=== PATIENT | female | born 1985 | race American Indian/Alaskan Native ===

== ENCOUNTER 2017-05-28 23:08 | Emergency (ER) | payer OTHER ==
[2017-05-29 00:36] LABS: Basophils % (Auto) 0.2 % (0.0-1.8); Eosinophils % (Auto) 1.4 % (0.0-4.3); Hemoglobin 12.6 gm/dl (10.1-14.3); Mean Corpuscular HGB Conc 32 % (30-34); Mean Corpuscular Hemoglobin 26 pg (28-32); Mean Corpuscular Volume 81 fl (79-97); Platelet Count 251 K/mm3 (140-440); Red Blood Count 4.84 M/mm3 (3.65-5.03); Red Cell Distribution Width 15.6 % (13.2-15.2); White Blood Count 7.4 K/mm3 (4.5-11.0)
[2017-05-29 00:42] LABS: Anion Gap 16 mmol/L; Blood Urea Nitrogen 9 mg/dL (7-17); Calcium 9.1 mg/dL (8.4-10.2); Carbon Dioxide 26 mmol/L (22-30); Glucose 101 mg/dL (65-100); Potassium 3.7 mmol/L (3.6-5.0); Sodium 135 mmol/L (137-145)
[2017-05-29 01:36] LABS: Bacteria,Urine 3+ /HPF (Negative); Bilirubin,Urine NEG (Negative); Blood,Urine MOD (Negative); Ketones,Urine NEG (Negative); Leukocyte Esterase,Urine LG (Negative); Mucus,Urine 2+ /HPF; Nitrite,Urine NEG (Negative)
[2017-05-29 01:38] LABS: WBC,Urine > 182.0 /HPF (0.0-6.0)
[2017-05-29] MEDS ORDERED: NACL 0.9% 1000 ML 1,000 ML IV ONE (10:35)
[2017-05-29] MEDS ORDERED: TYLENOL PO ONE (10:35)
[2017-05-29] MEDS ORDERED: ROCEPHIN/NS 1 GM/50 ML 1 GM/50 ML BAG IV ONE (10:35)
[2017-05-29] MEDS ORDERED: ZOFRAN IV ONE (10:35)
--- NOTE | 2017-05-29 11:55 | Ultrasound Report ---
ULTRASOUND OB LESS THAN 14 WEEKS FETUS ULTRASOUND OB TRANSVAGINAL HISTORY: Abdominal pain during , vomiting. TECHNIQUE: Transabdominal and transvaginal ultrasound with color and spectral doppler interrogation. The uterus measures 11.4 x 5.5 x 7.3 cm. No uterine mass is appreciated. An intrauterine is identified with heart rate measuring 168 beats per minute. [place]-rump length measures 31.4 mm which correlates with a 10 week, 0 day . Estimated due date December 25, 2017. A small subchorionic hemorrhage is identified. The ovaries are visualized. A 1.6 cm cyst is noted in the right ovary. A 3.1 cm cyst is noted in the left ovary. No pelvic fluid collection. IMPRESSION: Viable, single intrauterine as described. Small subchorionic hemorrhage. Bilateral ovarian cysts.
--- NOTE | 2017-05-29 12:31 | Emergency Department Report ---
ED N/V/D HPI - General Chief complaint: Back Pain/Injury Stated complaint: BACK PAIN/HEADACHE Time Seen by Provider: 05/29/17 10:28 Source: patient Mode of arrival: Ambulatory Limitations: No Limitations - History of Present Illness Initial comments: 31-year-old female with no sciatica past medical history presents to the hospital complaining of lower back pain, headache, and nausea vomiting. Symptoms 2 days. Lower back pain described as sharp, aching, worse and movement and palpation. Pain rated 8/10 in intensity. Patient having intermittent nausea vomiting with decreased by mouth intake for the past 2 days. She complains of a posterior headache that started gradually and has been constant. She hasn't taken any medications for pain. LMP was 7 weeks and 6 days ago. Patient denies dysuria but complains of vaginal discharge without vaginal bleeding or abdominal pain. - Related Data Previous Rx's Medication Instructions Recorded Last Taken Type Acetaminophen/Codeine [Tylenol #3] 1 tab PO Q6H PRN #5 tab 11/04/15 Unknown Rx Tobramycin 0.3% [Tobrex] 2 drop OD Q4HR #1 bottle 11/04/15 Unknown Rx Nitrofurantoin Alfalfa/M-Cryst 100 mg PO Q12HR #14 capsule 05/29/17 Unknown Rx [Macrobid CAP] Ondansetron [Zofran Odt] 4 mg PO Q8HR PRN #20 tab.rapdis 05/29/17 Unknown Rx Vit W-Ca,Fe,FA(<1 mg) 1 each PO DAILY #30 tablet 05/29/17 Unknown Rx [ Vitamins] metroNIDAZOLE [Flagyl] 500 mg PO Q12HR #14 tab 05/29/17 Unknown Rx Allergies Allergy/AdvReac Type Severity Reaction Status Date / Time No Known Allergies Allergy Verified 06/18/15 08:11 ED Review of Systems ROS: Stated complaint: BACK PAIN/HEADACHE Other details as noted in HPI Comment: All other systems reviewed and negative Other: Constitutional: No fevers chills or weight loss Eyes: No eye pain visual changes or discharge ENT: No ear pain or throat pain Neck: Denies pain Respiratory: Denies cough wheezing shortness of breath at rest shortness of breath or exertion, orthopnea or PND Cardiovascular: Denies chest pain, palpitations, syncope Endocrine: Denies excessive sweating, intolerance to cold, increased thirst GI: Denies abdominal pain, hematochezia : Denies dysuria Musculoskeletal: Positive back pain Skin: Denies rash, lesions, erythema Neurologic: Denies numbness, weakness Psychiatric: Denies suicidal ideation, hallucinations Hematological/lymphatic: Denies easy bruising, lymphadenopathy ED Past Medical Hx - Past Medical History Previous Medical History?: No - Surgical History Past Surgical History?: No - Social History Smoking Status: Never Smoker Substance Use Type: None - Medications Home Medications: Home Medications Medication Instructions Recorded Confirmed Last Taken Type Acetaminophen/Codeine [Tylenol #3] 1 tab PO Q6H PRN #5 tab 11/04/15 Unknown Rx Tobramycin 0.3% [Tobrex] 2 drop OD Q4HR #1 bottle 11/04/15 Unknown Rx Nitrofurantoin Alfalfa/M-Cryst 100 mg PO Q12HR #14 capsule 05/29/17 Unknown Rx [Macrobid CAP] Ondansetron [Zofran Odt] 4 mg PO Q8HR PRN #20 tab.rapdis 05/29/17 Unknown Rx Vit W-Ca,Fe,FA(<1 mg) 1 each PO DAILY #30 tablet 05/29/17 Unknown Rx [ Vitamins] metroNIDAZOLE [Flagyl] 500 mg PO Q12HR #14 tab 05/29/17 Unknown Rx ED Physical Exam - General Limitations: No Limitations - Other Other exam information: General: No limitations, patient is alert in no acute distress Head exam: Atraumatic, normocephalic Eyes exam: Normal appearance ENT: Moist mucous membrane, normal oropharynx Neck exam: Normal inspection, full range of motion, no meningismus nontender Respiratory exam: Clear to auscultation bilateral, no wheezes, rales, crackles Cardiovascular: Normal rate and rhythm, normal heart sounds Abdomen: Soft, nondistended, and nontender, with normal bowel sounds, no rebound, or guarding : External vagina normal without lesions, thick white discharge in vaginal vault, no cervical lesions, no CMT Extremity: Full range of motion normal inspection no deformity Back: Normal Inspection, generalized lower lumbar tenderness Neurologic: Alert, oriented x3, cranial nerves intact, no motor or sensory deficit Psychiatric: normal affect, normal mood Skin: Warm, dry, intact ED Course Vital Signs 05/28/17 05/29/17 05/29/17 23:56 10:05 12:20 Temperature 98.4 F 98.5 F Pulse Rate 80 63 Respiratory 18 20 20 Rate Blood Pressure 137/84 Blood Pressure 173/71 [Left] O2 Sat by Pulse 97 99 Oximetry 05/29/17 13:20 Temperature 98.5 F Pulse Rate 58 L Respiratory 20 Rate Blood Pressure Blood Pressure 116/68 [Left] O2 Sat by Pulse 100 Oximetry - Reevaluation(s) Reevaluation #1: 05/29/17 13:38 pt received 1 L normal saline, Rocephin IV, Zofran IV, and Tylenol by mouth. She reports reduction in her headache. Patient states she still has lower back pain. 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 She states that Flagyl by mouth 500 twice a day 7 days is indicated for treatment of Trichomonas/BV during ED Medical Decision Making - Lab Data Result diagrams: 05/29/17 00:12 05/29/17 00:12 Lab Results 05/29/17 05/29/17 05/29/17 Range/Units 00:12 00:12 00:12 WBC 7.4 (4.5-11.0) K/mm3 RBC 4.84 (3.65-5.03) M/mm3 Hgb 12.6 (10.1-14.3) gm/dl Hct 39.0 (30.3-42.9) % MCV 81 (79-97) fl MCH 26 L (28-32) pg MCHC 32 (30-34) % RDW 15.6 H (13.2-15.2) % Plt Count 251 (140-440) K/mm3 Lymph % (Auto) 40.6 H (13.4-35.0) % Alfalfa % (Auto) 8.2 H (0.0-7.3) % Eos % (Auto) 1.4 (0.0-4.3) % Baso % (Auto) 0.2 (0.0-1.8) % Lymph # 3.0 (1.2-5.4) K/mm3 Alfalfa # 0.6 (0.0-0.8) K/mm3 Eos # 0.1 (0.0-0.4) K/mm3 Baso # 0.0 (0.0-0.1) K/mm3 Seg Neutrophils % 49.6 (40.0-70.0) % Seg Neutrophils # 3.7 (1.8-7.7) K/mm3 Sodium 135 L (137-145) mmol/L Potassium 3.7 (3.6-5.0) mmol/L Chloride 97.0 L (98-107) mmol/L Carbon Dioxide 26 (22-30) mmol/L Anion Gap 16 mmol/L BUN 9 (7-17) mg/dL Creatinine 0.4 L (0.7-1.2) mg/dL Estimated GFR > 60 ml/min BUN/Creatinine Ratio 22.50 % Glucose 101 H (65-100) mg/dL Calcium 9.1 (8.4-10.2) mg/dL HCG, Qual Positive (Negative) HCG, Quant (0-4) mIU/mL Urine Color (Yellow) Urine Turbidity (Clear) Urine pH (5.0-7.0) Ur Specific [place] (1.003-1.030) Urine Protein (Negative) mg/dL Urine Glucose (UA) (Negative) mg/dL Urine Ketones (Negative) mg/dL Urine Blood (Negative) Urine Nitrite (Negative) Urine Bilirubin (Negative) Urine Urobilinogen (<2.0) mg/dL Ur Leukocyte Esterase (Negative) Urine WBC (Auto) (0.0-6.0) /HPF Urine RBC (Auto) (0.0-6.0) /HPF U Epithel Cells (Auto) (0-13.0) /HPF Urine Bacteria (Auto) (Negative) /HPF Urine Mucus /HPF Blood Type 05/29/17 05/29/17 05/29/17 Range/Units 01:00 01:00 12:39 WBC (4.5-11.0) K/mm3 RBC (3.65-5.03) M/mm3 Hgb (10.1-14.3) gm/dl Hct (30.3-42.9) % MCV (79-97) fl MCH (28-32) pg MCHC (30-34) % RDW (13.2-15.2) % Plt Count (140-440) K/mm3 Lymph % (Auto) (13.4-35.0) % Alfalfa % (Auto) (0.0-7.3) % Eos % (Auto) (0.0-4.3) % Baso % (Auto) (0.0-1.8) % Lymph # (1.2-5.4) K/mm3 Alfalfa # (0.0-0.8) K/mm3 Eos # (0.0-0.4) K/mm3 Baso # (0.0-0.1) K/mm3 Seg Neutrophils % (40.0-70.0) % Seg Neutrophils # (1.8-7.7) K/mm3 Sodium (137-145) mmol/L Potassium (3.6-5.0) mmol/L Chloride (98-107) mmol/L Carbon Dioxide (22-30) mmol/L Anion Gap mmol/L BUN (7-17) mg/dL Creatinine (0.7-1.2) mg/dL Estimated GFR ml/min BUN/Creatinine Ratio % Glucose (65-100) mg/dL Calcium (8.4-10.2) mg/dL HCG, Qual (Negative) HCG, Quant [id number] H (0-4) mIU/mL Urine Color Yellow (Yellow) Urine Turbidity Cloudy (Clear) Urine pH 6.0 (5.0-7.0) Ur Specific [place] 1.020 (1.003-1.030) Urine Protein 30 mg/dl (Negative) mg/dL Urine Glucose (UA) Neg (Negative) mg/dL Urine Ketones Neg (Negative) mg/dL Urine Blood Mod (Negative) Urine Nitrite Neg (Negative) Urine Bilirubin Neg (Negative) Urine Urobilinogen 4.0 (<2.0) mg/dL Ur Leukocyte Esterase Lg (Negative) Urine WBC (Auto) > 182.0 H (0.0-6.0) /HPF Urine RBC (Auto) 109.0 (0.0-6.0) /HPF U Epithel Cells (Auto) 54.0 H (0-13.0) /HPF Urine Bacteria (Auto) 3+ (Negative) /HPF Urine Mucus 2+ /HPF Blood Type B POSITIVE - Radiology Data Radiology results: report reviewed Transvaginal/pelvic ultrasound 10 week IUP heart 168 small subchorionic hemorrhage no pelvic fluid collection - Medical Decision Making Plan to discharge patient home. I suspected nausea or vomiting related to . Patient has a mild headache at this time she states is gradual without any no rigidity, blurred vision, or neurologic deficit and has improved. Patient was treated for bacterial vaginosis and Trichomonas in educated about the importance of her partner being treated as well. 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 Outpatient follow-up will be encouraged. - Differential Diagnosis UTI, , migraine headache, cluster headache, dehydration Critical Care Time: No Critical care attestation.: If time is entered above; I have spent that time in minutes in the direct care of this critically ill patient, excluding procedure time. ED Disposition Clinical Impression: 10 weeks gestation of , Bacterial vaginosis, Trichomonal infection, Nausea and vomiting, Headache Disposition: TO HOME OR SELFCARE Is pt being admited?: No Does the pt Need Aspirin: No Condition: Stable Instructions: Bacterial Vaginosis (ED), Trichomoniasis (ED), (ED), Acute Headache (ED) Additional Instructions: Take the medications as prescribed. Take Tylenol as needed for pain. Follow-up with the MARKING MACHINE OPERATOR doctor provided or with a doctor of your choice. Return if symptoms worsen. Antibiotics have been prescribed for trichomonas which is a 60 transfer disease. Is very important that she'll sexual partners to be treated for this as well. Your gonorrhea and chlamydia tests are pending and take approximately 3-4 days result. You may obtain results in medical records with a photo ID. You may also obtain results through the follow-up doctor office via medical record request. Prescriptions: metroNIDAZOLE [Flagyl] 500 mg PO Q12HR #14 tab Nitrofurantoin Alfalfa/M-Cryst [Macrobid CAP] 100 mg PO Q12HR #14 capsule Ondansetron [Zofran Odt] 4 mg PO Q8HR PRN #20 tab.rapdis PRN Reason: Nausea And Vomiting Vit W-Ca,Fe,FA(<1 mg) [ Vitamins] 1 each PO DAILY #30 tablet Referrals: [facility] [Provider Group] - 3-5 Days Forms: STI Treatment and Prevention Time of Disposition: 13:42
[2017-05-29 13:21] VITALS: BP 116/68
[2017-05-29] MEDS ORDERED: FLAGYL PO ONE (13:39)
== END 2017-05-29 14:24 | disposition home or self-care (01) ==
LOC: ED 23:08
DX: O98.311 Other infections with a predominantly sexual mode of transmission complicating pregnancy, first trimester (principal); A59.01 Trichomonal vulvovaginitis; Z3A.10 10 weeks gestation of pregnancy
CPT/HCPCS: 36415; 76801; 76817; 80048; 81001; 84702; 84703; 85025; 86900; 86901; 87086; 87210; 87591; 96365; 96375; 99285; J0696; J2405; J7030

== ENCOUNTER 2017-06-19 16:13 | Emergency (ER) | payer MEDICAID, OTHER ==
[2017-06-19 17:25] LABS: Basophils % (Auto) 0.2 % (0.0-1.8); Hematocrit 39.6 % (30.3-42.9); Hemoglobin 13.2 gm/dl (10.1-14.3); Mean Corpuscular HGB Conc 33 % (30-34); Mean Corpuscular Hemoglobin 27 pg (28-32); Mean Corpuscular Volume 80 fl (79-97); Platelet Count 214 K/mm3 (140-440); Red Blood Count 4.98 M/mm3 (3.65-5.03); Red Cell Distribution Width 15.6 % (13.2-15.2); White Blood Count 6.9 K/mm3 (4.5-11.0)
[2017-06-19 17:31] LABS: Anion Gap 16 mmol/L; Blood Urea Nitrogen 9 mg/dL (7-17); Calcium 8.8 mg/dL (8.4-10.2); Carbon Dioxide 24 mmol/L (22-30); Chloride 98.3 mmol/L (98-107); Glucose 94 mg/dL (65-100); Potassium 3.7 mmol/L (3.6-5.0); Sodium 135 mmol/L (137-145)
[2017-06-19 17:44] LABS: Bacteria,Urine 2+ /HPF (Negative); Bilirubin,Urine NEG (Negative); Blood,Urine SM (Negative); Ketones,Urine NEG (Negative); Leukocyte Esterase,Urine TR (Negative); Mucus,Urine 3+ /HPF; Nitrite,Urine NEG (Negative)
[2017-06-19] MEDS ORDERED: NACL 0.9% 1000 ML 1,000 ML IV ONE (21:41)
[2017-06-19] MEDS ORDERED: ZOFRAN IV ONE (21:41)
[2017-06-19] MEDS ORDERED: TYLENOL PO ONE (21:42)
[2017-06-19] MEDS ORDERED: FLEXERIL PO ONE (21:42)
--- NOTE | 2017-06-19 21:48 | Emergency Department Report ---
HPI - General Chief Complaint: Abdominal Pain Time Seen by Provider: 06/19/17 21:19 - HPI HPI: Room 10 The patient is a 31-year-old female presenting with a chief complaint of abdominal pain nausea vomiting. The patient is states for the past 4 days she has had lower abdominal and vaginal pain associated with low back pain. States she's had intractable nausea and vomiting for approximately 1 month. Patient complains of feeling weak and having body aches. Patient denies dysuria or hematuria. The patient was seen approximately 1 month ago and this ED for the same. Patient states she has not followed up with an OB/ ROPE WALKER yet Location: [see above] Duration: [see above] Quality: Headaches Severity: Moderate Modifying factors: [see above] Context: [see above] Mode of transportation: [not driving] ED Past Medical Hx - Past Medical History Additional medical history: obesity. ovarian cysts - Surgical History Past Surgical History?: No - Family History Family history: no significant - Social History Smoking Status: Never Smoker Substance Use Type: None (denies illicit drug use) - Medications Home Medications: Home Medications Medication Instructions Recorded Confirmed Last Taken Type Acetaminophen/Codeine [Tylenol #3] 1 tab PO Q6H PRN #5 tab 11/04/15 Unknown Rx Tobramycin 0.3% [Tobrex] 2 drop OD Q4HR #1 bottle 11/04/15 Unknown Rx Ondansetron [Zofran Odt] 4 mg PO Q8HR PRN #20 tab.rapdis 05/29/17 Unknown Rx Vit W-Ca,Fe,FA(<1 mg) 1 each PO DAILY #30 tablet 05/29/17 Unknown Rx [ Vitamins] metroNIDAZOLE [Flagyl] 500 mg PO Q12HR #14 tab 05/29/17 Unknown Rx Metoclopramide [Reglan] 10 mg PO QID PRN #30 tab 06/20/17 Unknown Rx Nitrofurantoin [place]/M-Cryst 100 mg PO Q12HR #14 capsule 06/20/17 Unknown Rx [Macrobid CAP] Ondansetron [Zofran ODT TAB] 8 mg PO Q8HR #20 tab.rapdis 06/20/17 Unknown Rx ED Review of Systems ROS: Stated complaint: 11 WEEKS PREG/ ABD CRAMPS/BACK PAIN Other details as noted in HPI Comment: All other systems reviewed and negative Constitutional: denies: chills, fever Eyes: denies: eye pain, eye discharge, vision change Respiratory: denies: cough, shortness of breath, wheezing Cardiovascular: denies: chest pain, palpitations Endocrine: no symptoms reported Gastrointestinal: abdominal pain, nausea, vomiting Genitourinary: abnormal menses (?) Musculoskeletal: denies: back pain, joint swelling, arthralgia Skin: denies: rash, lesions Neurological: denies: headache, weakness, paresthesias Psychiatric: denies: anxiety, depression Hematological/Lymphatic: denies: easy bleeding, easy bruising Physical Exam - Physical Exam Vital Signs: Vital Signs 06/19/17 06/19/17 16:21 20:22 Temperature 99.0 F Pulse Rate 87 Respiratory 17 16 Rate Blood Pressure 123/89 O2 Sat by Pulse 100 Oximetry Physical Exam: GENERAL: The patient is well-developed well-nourished female lying on stretcher not appearing to be in acute distress. [] HEENT: Normocephalic. Atraumatic. Extraocular motions are intact. NECK: Supple. Trachea midline CHEST/LUNGS: Clear to auscultation. There is no respiratory distress noted. HEART/CARDIOVASCULAR: Regular. There is no tachycardia. There is no gallop rub or murmur. ABDOMEN: Abdomen is soft, there is no rebound or guarding. Patient has normal bowel sounds. There is no abdominal distention. SKIN: There is no rash. There is no edema. There is no diaphoresis. NEURO: The patient is awake, alert, and oriented. The patient is cooperative. The patient has normal speech MUSCULOSKELETAL: There is no evidence of acute injury. ED Course Vital Signs 06/19/17 06/19/17 16:21 20:22 Temperature 99.0 F Pulse Rate 87 Respiratory 17 16 Rate Blood Pressure 123/89 O2 Sat by Pulse 100 Oximetry - Reevaluation(s) Reevaluation #1: 06/20/17 00:18 Patient tolerating po challenge ED Medical Decision Making - Lab Data Result diagrams: 06/19/17 16:58 06/19/17 16:58 Laboratory Tests 06/19/17 06/19/17 06/19/17 16:58 16:58 16:58 WBC 6.9 RBC 4.98 Hgb 13.2 Hct 39.6 MCV 80 MCH 27 L MCHC 33 RDW 15.6 H Plt Count 214 Lymph % (Auto) 36.8 H [place] % (Auto) 7.0 Eos % (Auto) 1.0 Baso % (Auto) 0.2 Lymph # 2.5 [place] # 0.5 Eos # 0.1 Baso # 0.0 Seg Neutrophils % 55.0 Seg Neutrophils # 3.8 Sodium 135 L Potassium 3.7 Chloride 98.3 Carbon Dioxide 24 Anion Gap 16 BUN 9 Creatinine 0.4 L Estimated GFR > 60 BUN/Creatinine Ratio 22.50 Glucose 94 Calcium 8.8 HCG, Quant [id number] H Urine Color Urine Turbidity Urine pH Ur Specific [place] Urine Protein Urine Glucose (UA) Urine Ketones Urine Blood Urine Nitrite Urine Bilirubin Urine Urobilinogen Ur Leukocyte Esterase Urine WBC (Auto) Urine RBC (Auto) U Epithel Cells (Auto) Urine Bacteria (Auto) Urine Mucus 06/19/17 17:06 WBC RBC Hgb Hct MCV MCH MCHC RDW Plt Count Lymph % (Auto) [place] % (Auto) Eos % (Auto) Baso % (Auto) Lymph # [place] # Eos # Baso # Seg Neutrophils % Seg Neutrophils # Sodium Potassium Chloride Carbon Dioxide Anion Gap BUN Creatinine Estimated GFR BUN/Creatinine Ratio Glucose Calcium HCG, Quant Urine Color Yellow Urine Turbidity Clear Urine pH 6.0 Ur Specific [place] 1.033 H Urine Protein 30 mg/dl Urine Glucose (UA) Neg Urine Ketones Neg Urine Blood Sm Urine Nitrite Neg Urine Bilirubin Neg Urine Urobilinogen 2.0 Ur Leukocyte Esterase Tr Urine WBC (Auto) 7.0 H Urine RBC (Auto) 21.0 U Epithel Cells (Auto) 12.0 Urine Bacteria (Auto) 2+ Urine Mucus 3+ - Radiology Data Radiology results: report reviewed (pelvic ultrasound), image reviewed (pelvic ultrasound) "Ultrasound (read by radiologist)-single live intrauterine gestation measuring 13 weeks, 1 day. heart rate 160 bpm. 2.1 cm left ovarian cyst - Differential Diagnosis threatened , hyperemesis gravidarum Critical care attestation.: If time is entered above; I have spent that time in minutes in the direct care of this critically ill patient, excluding procedure time. ED Disposition Clinical Impression: Hyperemesis gravidarum, UTI (urinary tract infection) Disposition: TO HOME OR SELFCARE Is pt being admited?: No Does the pt Need Aspirin: No Condition: Stable Instructions: Abdominal Pain (ED), Hyperemesis Gravidarum (ED) Additional Instructions: Return to the emergency department immediately should you develop worsening symptoms, fever, inability to tolerate food or liquid or any other concerns. Prescriptions: Metoclopramide [Reglan] 10 mg PO QID PRN #30 tab PRN Reason: Nausea Nitrofurantoin [place]/M-Cryst [Macrobid CAP] 100 mg PO Q12HR #14 capsule Ondansetron [Zofran ODT TAB] 8 mg PO Q8HR #20 tab.rapdis Referrals: PRIMARY CARE, [Primary Care Provider] - 3-5 Days ALEX PÉREZ MD [Staff Physician] - [facility] (Dr. Pérez is an ADJUDICATION SPECIALIST. Please follow up with her to be established as a patient) Time of Disposition: 00:21
--- NOTE | 2017-06-19 22:48 | Ultrasound Report ---
FINAL REPORT EXAM: US OB \T\lt; = 14 WEEKS FETUS HISTORY: , lower abdominal pain, possible spotting TECHNIQUE: Obstetric ultrasound, limited. PRIORS: None. FINDINGS: The uterus measures 12.4 x 6.6 x 9.4 centimeter. There is evidence of a single live intrauterine gestation. The crown-rump length measures 6.86 centimeter. The estimated gestational age is 13 weeks, 1 day. The estimated due date is 12/24/2017. The heart rate is 160 beats per minute. The placenta is posterior. The right ovary measures 2.3 x 2.2 x 2.2 centimeter. The left ovary measures 3.3 x 2.9 x 3.3 centimeters. There is a 2.1 centimeter left ovarian cyst. IMPRESSION: Single live intrauterine gestation measuring 13 weeks, 1 day.
[2017-06-20 00:08] VITALS: BP 126/80
== END 2017-06-20 01:01 | disposition home or self-care (01) ==
LOC: ED 16:13
DX: O23.41 Unspecified infection of urinary tract in pregnancy, first trimester (principal); O21.1 Hyperemesis gravidarum with metabolic disturbance; Z3A.13 13 weeks gestation of pregnancy
CPT/HCPCS: 36415; 76801; 80048; 81001; 84702; 85025; 96361; 96374; 99284; J2405; J7030